=== PATIENT | male | born 1945 | race Caucasian/White ===

== ENCOUNTER 2017-04-15 12:14 | Inpatient (IN) ==
[2017-04-15] MEDS ORDERED: SALINE FLUSH 10ml SYRINGE IVF PRN (13:02)
[2017-04-15] MEDS ORDERED: OLANZapine INJ 10 MG VIAL IM ONE (13:32)
--- NOTE | 2017-04-15 17:20 | Emergency Department Report ---
Psych HPI - General Chief Complaint: Psychiatric Symptoms Stated Complaint: psych eval Time Seen by Provider: 04/15/17 12:30 Source: patient, police Mode of arrival: other (with [employer]) Limitations: altered mental status - History of Present Illness HPI Narrative: Pt presents with [employer] after they found him in a field with no shoes on. PD reports pt was hyperverbal and talking about God and Satan and unable to stay on topic conversationally. Pt reports he sometimes lives in a car and knows how to fly a plane. Pt is difficult to assess 2/2 flight of ideas. Pt denies any desire to hurt himself or others however is clearly unable to care for himself MD complaint: altered mental status, other (psychotic) Onset (ago): unknown Duration: constant Treatments prior to arrival: none - Related Data Home Medications Medication Instructions Recorded Confirmed No known Home medications [No home 04/15/17 04/15/17 meds] Allergies Allergy/AdvReac Type Severity Reaction Status Date / Time No Known Allergies Allergy Verified 04/15/17 12:28 Review of Systems Limitations: ROS unobtainable due to patient's medical condition PFSH Patient Stated Medical History Other Musculoskeletal Yes: fx - Social History Smoking status: Former smoker Physical Exam - Limitations Limitations: altered mental status, other (psychosis) - General General appearance: alert, anxious, in distress - Normal Exams: Head:: Normocephalic without trauma Eyes:: Pupils are PERRLA w/ EOMI Neck:: Full range of motion, without adenopathy Chest/Respirations:: Clear all gomez, with good airflow, and symmetry bilaterally Cardiovascular:: Regular rate and rhythm, without murmur or gallop, Pulses 2+ all extremities, capillary refill Abdomen:: Bowel sounds positive, soft, non-tender, non-distended Musculoskeletal:: No tenderness, or deformity noted, good range of motion, all extremities Integumentary:: No rashes Neurological:: Patient is alert - Expanded Psychiatric Exam Expanded psych exam: Present: pressured speech, responds to int stimuli, delusional, restlessness, flight of ideas, loose associations, refuses to answer Course Vital Signs Temperature 98.6 F 04/15/17 12:29 Pulse Rate 91 04/15/17 12:29 Respiratory Rate 16 04/15/17 12:29 Blood Pressure 144/65 H 04/15/17 12:29 Pulse Oximetry 95 04/15/17 12:29 Temperature 98.6 F 04/15/17 12:29 Pulse Rate 109 H 04/15/17 18:36 Respiratory Rate 22 04/15/17 18:36 Blood Pressure 136/63 04/15/17 18:36 Pulse Oximetry 95 04/15/17 18:36 Psych - MDM Narrative Medical decision making narrative: Pt given Zyprexa earlier in his stay and has been restful and quiet since. After all diagnostics resulted [facility] notified for admit at 1720. [facility] returned call at 1816 and are willing to accept pt if ER obtains a court hold. PD notified by nursing and court hold obtained. Pt to transfer for continued care - Differential Diagnosis Likely: acute psychosis, chronic schizophrenia, bipolar disorder, drug-induced psychotic disorder, acute anxiety - Lab Data Attestation: I reviewed the patient's lab results. Result diagrams: 04/15/17 14:12 04/15/17 14:12 Lab Results 04/15/17 04/15/17 04/15/17 Range/Units 14:12 14:12 14:12 WBC 8.3 (4.5-11.0) T/MM3 RBC 3.86 L (4.50-5.90) M/MM3 Hgb 11.0 L (13.5-17.5) GM/DL Hct 33.3 L (41-53) % MCV 86.3 (80-100) UM3 MCH 28.5 (26-34) UUG MCHC 33.0 (31-37) GM/DL RDW Std Deviation 45.9 (36.9-50.2) FL Plt Count 247 (130-400) T/MM3 MPV 10.2 (9.4-12.4) UM3 Immature Gran % (Auto) 0.2 (0.0-0.5) % Neut % (Auto) 77.3 H (33-66) % Lymph % (Auto) 16.2 L (23-45) % [place] % (Auto) 6.0 (0-9.0) % Eos % (Auto) 0.1 (0-4) % Baso % (Auto) 0.2 (0-2) % Neut # (Auto) 6.4 (1.8-7.7) T/MM3 Lymph # (Auto) 1.4 (1-4.8) T/MM3 [place] # (Auto) 0.5 (0-0.8) T/MM3 Eos # (Auto) 0.0 (0-0.5) T/MM3 Baso # (Auto) 0.0 (0-0.2) T/MM3 Abs Immat Gran (auto) 0.02 (0.00-0.03) T/MM3 Turbidity < 20 (0-20) Sodium 138 (134-144) MEQ/L Potassium 3.8 (3.6-5) MEQ/L Chloride 103 (98-107) MEQ/L Carbon Dioxide 24 (22-30) MEQ/L Anion Gap 11 (5-15) MEQ/L BUN 13.0 (9-20) MG/DL Creatinine 0.8 (0.8-1.5) MG/DL GFR Calculation 95 BUN/Creatinine Ratio 16 (6-26) RATIO Glucose 129 H (75-110) MG/DL Calculated Osmolality 268 (261-280) MOSM/KG Calcium 9.2 (8.4-10.2) MG/DL Total Bilirubin 0.50 (0.20-1.30) MG/DL Icterus Index < 2 (0-7) AST 20 (17-59) U/L ALT 34 (21-72) U/L Alkaline Phosphatase 68 (38-126) U/L Total Protein 7.2 (6.3-8.2) G/DL Albumin 3.8 (3.5-5.0) G/DL Globulin 3.4 (2.4-3.6) G/DL Albumin/Globulin Ratio 1.1 (1.1-2.2) RATIO TSH 2.07 (0.47-4.68) MIU/L Specimen Hemolysis < 15 (0-25) Ur Collection Type Urine, clean catch Urine Color Yellow (YELLOW) Urine Clarity Clear Urine pH 6.0 (5.0-8.0) Ur Specific [place] 1.025 (1.015-1.025) Urine Protein 1+ A (NEGATIVE) Urine Glucose (UA) Negative (NEGATIVE) Urine Ketones Trace A (NEGATIVE) Urine Occult Blood Negative (NEGATIVE) Urine Nitrate Negative (NEGATIVE) Urine Bilirubin 1+ A (NEGATIVE) Urine Urobilinogen 4.0 A (NORMAL) EU/DL Ur Leukocyte Esterase Negative (NEGATIVE) Urine RBC 0-1 (0-3) /HPF Urine WBC 0-1 (0-5) /HPF Ur Squamous Epith Cells 0-5 Urine Bacteria Trace H (NEGATIVE) Ur Culture Indicated? Cult not indicated Salicylates < 1.0 L (2-20) MG/DL Urine Opiates Screen ng/mL Ur Oxycodone Screen ng/mL Urine Methadone Screen ng/mL Ur Propoxyphene Screen ng/mL Acetaminophen < 10 L (10-30) UG/ML Ur Barbiturates Screen ng/mL U Tricyclic Antidepress ng/mL Ur Phencyclidine Scrn ng/mL Ur Amphetamines Screen ng/mL U Methamphetamines Scrn ng/mL U Benzodiazepines Scrn ng/mL Urine Cocaine Screen ng/mL U Cannabinoids Screen ng/mL 04/15/17 Range/Units 14:12 WBC (4.5-11.0) T/MM3 RBC (4.50-5.90) M/MM3 Hgb (13.5-17.5) GM/DL Hct (41-53) % MCV (80-100) UM3 MCH (26-34) UUG MCHC (31-37) GM/DL RDW Std Deviation (36.9-50.2) FL Plt Count (130-400) T/MM3 MPV (9.4-12.4) UM3 Immature Gran % (Auto) (0.0-0.5) % Neut % (Auto) (33-66) % Lymph % (Auto) (23-45) % [place] % (Auto) (0-9.0) % Eos % (Auto) (0-4) % Baso % (Auto) (0-2) % Neut # (Auto) (1.8-7.7) T/MM3 Lymph # (Auto) (1-4.8) T/MM3 [place] # (Auto) (0-0.8) T/MM3 Eos # (Auto) (0-0.5) T/MM3 Baso # (Auto) (0-0.2) T/MM3 Abs Immat Gran (auto) (0.00-0.03) T/MM3 Turbidity (0-20) Sodium (134-144) MEQ/L Potassium (3.6-5) MEQ/L Chloride (98-107) MEQ/L Carbon Dioxide (22-30) MEQ/L Anion Gap (5-15) MEQ/L BUN (9-20) MG/DL Creatinine (0.8-1.5) MG/DL GFR Calculation BUN/Creatinine Ratio (6-26) RATIO Glucose (75-110) MG/DL Calculated Osmolality (261-280) MOSM/KG Calcium (8.4-10.2) MG/DL Total Bilirubin (0.20-1.30) MG/DL Icterus Index (0-7) AST (17-59) U/L ALT (21-72) U/L Alkaline Phosphatase (38-126) U/L Total Protein (6.3-8.2) G/DL Albumin (3.5-5.0) G/DL Globulin (2.4-3.6) G/DL Albumin/Globulin Ratio (1.1-2.2) RATIO TSH (0.47-4.68) MIU/L Specimen Hemolysis (0-25) Ur Collection Type Urine Color (YELLOW) Urine Clarity Urine pH (5.0-8.0) Ur Specific [place] (1.015-1.025) Urine Protein (NEGATIVE) Urine Glucose (UA) (NEGATIVE) Urine Ketones (NEGATIVE) Urine Occult Blood (NEGATIVE) Urine Nitrate (NEGATIVE) Urine Bilirubin (NEGATIVE) Urine Urobilinogen (NORMAL) EU/DL Ur Leukocyte Esterase (NEGATIVE) Urine RBC (0-3) /HPF Urine WBC (0-5) /HPF Ur Squamous Epith Cells Urine Bacteria (NEGATIVE) Ur Culture Indicated? Salicylates (2-20) MG/DL Urine Opiates Screen Negative ng/mL Ur Oxycodone Screen Negative ng/mL Urine Methadone Screen Negative ng/mL Ur Propoxyphene Screen Negative ng/mL Acetaminophen (10-30) UG/ML Ur Barbiturates Screen Negative ng/mL U Tricyclic Antidepress Negative ng/mL Ur Phencyclidine Scrn Negative ng/mL Ur Amphetamines Screen Negative ng/mL U Methamphetamines Scrn Negative ng/mL U Benzodiazepines Scrn Negative ng/mL Urine Cocaine Screen Negative ng/mL U Cannabinoids Screen Negative ng/mL Disposition Clinical Impression: Acute psychosis Disposition: 63 To [facility] Condition: Improved Prescriptions: No Action No known Home medications [No home meds] [facility] Time of Disposition: 18:49 - Seen By: midlevel
[2017-04-15] MEDS ORDERED: DiphenhydrAMINE 50 MG/ML INJECTION IM PRN (20:24)
[2017-04-15] MEDS ORDERED: ASENAPINE 5 MG SUBLINGUAL TABLET SL SCH (21:00)
[2017-04-16] MEDS: LORazepam INTENSOL 1mg/0.5ml ORAL LIQUID SL PRN ×2 (00:30→07:52)
[2017-04-16 04:18] VITALS: BMI 22.9
--- NOTE | 2017-04-16 07:24 | History & Physical Report ---
History of Present Illness Date: 04/16/17 Chief complaint: brought in by police HPI: Pt is a 71 yo male who the police found in a field with no shoes on. Per ER report: "PD reports pt was hyperverbal and talking about God and Satan and unable to stay on topic conversationally. Pt reports he sometimes lives in a car and knows how to fly a plane." At this point, no one has been able to locate his car or find out where he lives. He was found with a wallet and drivers license and car keys. Pt tells me he is "from around [place]," but doesn't elaborate. Says he is "after the outlaws." Requests bleach to "make a bomb" and then later states he wants it to "clean his dentures." C/o not being able to stay asleep at night. He has no complaints at the present time other than feeling "tired and sleepy." He reports he is eating well. It is difficult to elicit history given patient's flight of ideas. Review of Systems All systems PM: 10-point ROS was reviewed, no additional remarkable complaints except - Constitutional Constitutional: Present: fatigue Comments: insomnia [facility] Medical History Acute psychosis (Acute Medical) otherwise unknown - pt with no known PCP and reports no medical history other than surgery on L4-L5 Surgical History: unknown other than pt reports L4-L5 back surgery, states he broke his L tibia in the past but didn't require surgery Family History: unknown. Unable to elicit from pt. - Social History Smoking status: Former smoker Substance use type: unknown Alcohol intake frequency: other (unknown) Housing: homeless Social history: unknown Medications Home Medications Medication Instructions Recorded Confirmed Type No known Home medications [No home 04/15/17 04/15/17 History meds] Allergies Allergy/AdvReac Type Severity Reaction Status Date / Time No Known Allergies Allergy Verified 04/15/17 12:28 Exam Vital Signs: Temperature 98.8 F 04/15/17 19:00 Pulse Rate 93 04/15/17 19:00 Respiratory Rate 16 04/15/17 19:00 Blood Pressure 137/70 04/15/17 19:00 Pulse Oximetry 96 04/15/17 19:00 Height/Weight/BMI: Height 1.7 m Weight 66.5 kg Body Mass Index 22.9 - Constitutional Present: no acute distress, well nourished, well developed - Routine HEENT Exam Eye: Present: EOMI ENT: Present: external ear normal - Routine Neck Exam Present: supple. Absent: swelling - Routine Respiratory Exam Present: CTA bilaterally. Absent: wheezes - Routine Cardiovascular Exam Present: RRR, S1, S2. Absent: murmur - Routine Abdominal Exam Present: soft. Absent: tenderness - Routine Extremities Exam Present: edema (some brawny pigmentation, scaly skin and 1+ edema (pt states this is chronic for him)), no edema (RLE), normal capillary refill - Routine Skin Exam Present: dry, warm - Routine Neurological Exam Present: alert, CN II-XII intact, moving all extremities, normal tone, vision grossly intact, hearing grossly intact, normal speech. Absent: pronator drift, abnormal gait, facial asymmetry, tremors remembers his Bday and topics we discussed earlier in the conversation. Knows he is in a hospital. - Routine Psychiatric Exam Present: normal affect, cooperative Results - Labs CBC & Chem 7: 04/15/17 14:12 04/15/17 14:12 Labs: Laboratory Tests 04/15/17 04/15/17 14:12 14:12 Salicylates < 1.0 L Urine Opiates Screen Negative Ur Oxycodone Screen Negative Urine Methadone Screen Negative Ur Propoxyphene Screen Negative Acetaminophen < 10 L Ur Barbiturates Screen Negative U Tricyclic Antidepress Negative Ur Phencyclidine Scrn Negative Ur Amphetamines Screen Negative U Methamphetamines Scrn Negative U Benzodiazepines Scrn Negative Urine Cocaine Screen Negative U Cannabinoids Screen Negative Laboratory Tests 04/15/17 04/15/17 04/15/17 14:12 14:12 14:12 AST 20 ALT 34 Alkaline Phosphatase 68 Vitamin B12 260 Folate 11.6 TSH 2.15 Laboratory Tests 04/15/17 14:12 Ur Collection Type Urine, clean catch Urine Color Yellow Urine Clarity Clear Urine pH 6.0 Ur Specific [place] 1.025 Urine Protein 1+ A Urine Glucose (UA) Negative Urine Ketones Trace A Urine Occult Blood Negative Urine Nitrate Negative Urine Bilirubin 1+ A Urine Urobilinogen 4.0 A Ur Leukocyte Esterase Negative Urine RBC 0-1 Urine WBC 0-1 Ur Squamous Epith Cells 0-5 Urine Bacteria Trace H Assessment and Plan (1) Acute psychosis Current visit: Yes Status: Acute Assessment and Plan: Assessment acute psychosis Plan Agree with admission to [facility] for psychiatric treatment under the care of Dr. Corcoran. Based on labs and physical exam, there are no physical problems other than maybe some osteoarthritis. Medication management per Dr. Corcoran. VSS's and labs are normal. Will continue to follow patient medically throughout his stay as needed. Appreciate the consult. Elida Clements MD I have independently evaluated and examined this patient. I reviewed the chart, the patient's history, and the PATIENT ACCESS DIRECTOR/PA's documented findings as above. We discussed and formulated the assessment and plan as above with additions as below: Mr. Cole is a 71 yo male found by police in a field with no shoes. He changes topics often and rarely answers a question directly. He does admit to having recently had a cough and runny nose. He says this is improving. He denies soa. At one point he said he had lost 30 pounds, but he would not say any more about that. He was admitted under a court hold for acute psychosis. NAD nc/at, perrl, eomi ctab rrr s/nt/nd no edema cn ii-xii intact; coles; face symmetrical Agree with admission to [facility]. Could offer cough drops if cough continues. Has mild anemia that could be w/u outpatient. Hospital Course Summary Disclaimer: The visit summary below is not to be considered part of the above Progress Note. Hospital Course: Assessment acute psychosis 04/16/17 -hospitalist consult Agree with admission to [facility] for psychiatric treatment under the care of Dr. Corcoran. Based on labs and physical exam, there are no physical problems other than maybe some osteoarthritis. Medication management per Dr. Corcoran. VS's and labs are normal. Will continue to follow patient medically throughout his stay as needed. Appreciate the consult.
[2017-04-16] MEDS ORDERED: DIVALPROEX 250 MG TABLET PO ONE (14:00)
[2017-04-16] MEDS: NICOTINE 14 MG PATCH TD SCH (14:34)
[2017-04-16] MEDS: NICOTINE PATCH REMOVAL TD SCH (16:45)
[2017-04-16] MEDS: LORazepam 0.5 MG TABLET PO PRN (20:46)
--- NOTE | 2017-04-16 20:46 | 24 Hour Neuropsychiatic Eval ---
Date of Admission: 04/15/17 16:50 Chief complaint: Psychosis History of Present Illness: Patient is a 71-year-old , male who was brought to the [facility] ED on 04/15 after being found in a field, with only a pill bottle with him. Patient was either not able or not willing to tell police or staff anything about himself after arrival other than his name. He did have a pill bottle with him (unsure what medication) to a pharmacy in [place] - that pill bottle is no longer able to be located. It did not appear that he had overdosed per ED workup and he was deemed to be medically stable. Patient is cooperative but tense throughout interview with me. He is hyperverbal , with pressured speech and impulsive, with flight of ideas and loose associations. He is oriented to everything but situation. He is grandiose throughout interview, talking about [place], chauffering multimillionaires , etc. He says that this hospital is "saving his life" but can't tell me where he is from, why he is in [place], etc. He has reported that he has been homeless for some time and spent time primarily in the [place]. He is guarded about past psych history but does say he was in a mental institution ~30 years ago in [place]. He mentions thorazine and says "they tried to say he was bipolar" but by the time he was discharged, they wanted to hire him to medical staff because he could control the other patients better than they could. He denies any history of suicide attempts though he is obviously quite limited in his reliability as a historian. Patient often changes the subject when asked questions to which he does not know the answer. He is often sarcastic and makes comments about harming/killing others, though he denies HI toward anyone here in the hospital. He will not tell me who he would like to harm outside of the hospital though there are people. He states that he often has difficulty sleeping and has gone for several days without much sleep in the past. He denies any change in appetite (but would like to eat more) and denies any history of AVH. He denies any paranoia or thought broadcasting. Kath: Grandiose, Increased activity goal-directed/high risk, Decreased judgment , Distractible, Irritability, Need less sleep, Elevated mood, Speedy talking, Speedy thoughts Psychosis: Disorganized speech, Disorganized behavior Dementia: Memory Impairment [facility] Medical History Acute psychosis (Acute Medical) Medical History Updates: Patient denies any known medical conditions, history of seizures or head injury. Surgical History: unknown other than pt reports L4-L5 back surgery, states he broke his L tibia in the past but didn't require surgery Family History: Patient denies any family history of mental illness. 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 Absent: auditory hallucinations, depression, homicidal ideation, hopelessness, panic attacks, paranoia, suicidal ideation, visual hallucinations Mental Status Exam Vitals: Last Vital Signs Temp 99.1 F 04/16/17 19:42 Pulse 83 04/16/17 19:42 Resp 16 04/16/17 19:42 BP 128/61 04/16/17 19:42 Pulse Ox 98 04/16/17 19:42 Height: 1.7 m Weight: 66.5 kg - Mental Status Exam Muscle Strength/Tone: Normal Dressing: Casual Grooming: Disheveled Attitude: Cooperative, Tense Motor Activity: Fidgety Eye Contact: Good Speech: Rapid, Pressured Volume: Normal Rhythm: Appropriate Rhythm Sensory: Alert Orientation: Disoriented to situation, Oriented to person, Oriented to place, Oriented to time Mood: Euphoric Affect: Manic Rate of Thoughts: Pressured Thought Organization: Disorganized, Circumstantial Associations: Flight of Ideas, Loose-associations, Illogical Abstract Reasoning: Impaired, concrete Thought Content: Grandeur Perception/Psychotic: Perception Normal Language: Other (Some word-finding difficulties) Fund of Knowledge: Other (Decreased) Memory: Poor-recent Suicidal Ideation: Denies Homicidal Ideation: Other (Makes frequent statements regarding HI towards unnamed people) Insight: Impaired Judgement: Impaired Impulse Control: Poor - Laboratory Result Diagrams: 04/15/17 14:12 04/15/17 14:12 Assessment and Plan (1) Severe manic bipolar 1 disorder with psychotic behavior Current visit: Yes Status: Acute (2) Neurocognitive disorder Current visit: Yes Status: Acute Admit to [facility] and maintain safety and elopement precautions. Will order/review: CBC, CMP, TSH, UA, UDS, B12 and folate, CT of head +/- contrast 24-hour emergency court hold filed from ED; will plan to mile [facility] Got Zyprexa 20mg IM in ED - for the time being will do only PRN Ativan Benadryl Discussed treatment with patient who agreed to starting Depakote - will do a 250mg PO 1x now and then 1000mg ER tonight Monitor mood, behavior and response to treatment Attempt to gain more information about patient to assist with treatment planning
[2017-04-17] MEDS ORDERED: INFLUENZA VAC High Dose 2017-18 (Fluzone HD*) (>=65yo) 0.5ml IM ONE (09:00)
[2017-04-17] MEDS ORDERED: PNEUMOCOCCAL 13 VACCINE 0.5ml INJECTION IM ONE (09:00)
[2017-04-17] MEDS: NICOTINE 14 MG PATCH TD SCH (11:37)
[2017-04-17] MEDS: NICOTINE PATCH REMOVAL TD SCH (11:37)
[2017-04-17] MEDS: LORazepam 0.5 MG TABLET PO PRN ×2 (13:55→20:27)
[2017-04-17] MEDS ORDERED: OLANZapine 2.5 MG TABLET PO ONE (14:45)
--- NOTE | 2017-04-17 15:51 | Neuropsych Progress Note ---
[facility] Subjective Date: 04/17/17 - Sujective/Severity of Illness Medications: Diphenhydramine HCl (Benadryl) 50 mg IM Q4H PRN PRN Reason: Agitation Diphenhydramine HCl (Benadryl) 50 mg PO Q4H PRN PRN Reason: Agitation Last Admin: 04/17/17 13:55 Dose: 50 mg Divalproex Sodium (Depakote Er) 1,000 mg PO HS JAIME Last Admin: 04/16/17 20:20 Dose: 1,000 mg Lorazepam (Ativan) 0.5 mg PO Q6H PRN PRN Reason: Extreme agitation Last Admin: 04/17/17 13:55 Dose: 0.5 mg Lorazepam (Ativan Inj) 0.5 mg IM Q6H PRN PRN Reason: Extreme agitation Lorazepam (Ativan Intensol) 0.5 mg SL Q6H PRN Last Admin: 04/16/17 07:52 Dose: 0.5 mg Nicotine (Nicoderm) 14 mg TD DAILY [facility] Last Admin: 04/17/17 11:37 Dose: Not Given Nicotine (Nicotine Patch Removal) 1 removal TD DAILY [facility] Last Admin: 04/17/17 11:37 Dose: Not Given Sodium Chloride (Iv Flush) 10 - 80 ml IVF PRN PRN PRN Reason: Flushing Subjective: Patient seen and chart reviewed. Goals of treatment discussed and acknowledged by patient. He had ~4 hours of sleep interrupted overnight. He runs down the hallway occasionally. He has been making threatening statements to various people on the unit. During interview he is cooperative with me but still tense and makes frequent comments about harming others. He continues to be grandiose with flight of ideas and loose associations. VSS. Multiple PRNs given in past 24 hours. Will restart Zyprexa tonight in addition to Depakote. Patient is eating well. Has not been combative or outright aggressive. Start Time: 13:00 Stop Time: 13:20 Mental Status Exam Vitals: Last Vital Signs Temp 99.1 F 04/17/17 08:00 Pulse 78 04/17/17 08:00 Resp 18 04/17/17 08:00 BP 139/65 04/17/17 08:00 Pulse Ox 100 04/17/17 08:00 Height: 1.7 m Weight: 66.5 kg - Mental Status Exam Muscle Strength/Tone: Normal Dressing: Casual Grooming: Disheveled Attitude: Cooperative, Tense Motor Activity: Fidgety Eye Contact: Good Speech: Rapid, Pressured Volume: Normal Rhythm: Appropriate Rhythm Orientation: Disoriented to time, Disoriented to place, Disoriented to situation , Oriented to person Mood: Euphoric Rate of Thoughts: Pressured Thought Organization: Disorganized, Circumstantial Associations: Flight of Ideas, Loose-associations, Illogical Abstract Reasoning: Impaired, concrete Thought Content: Grandeur Perception/Psychotic: Perception Normal Language: Other (Some word-finding difficulties) Fund of Knowledge: Other (Decreased) Memory: Poor-recent Suicidal Ideation: Denies Homicidal Ideation: Other (Makes frequent statements regarding HI towards unnamed people) Insight: Impaired Judgement: Impaired Impulse Control: Poor - Laboratory Result Diagrams: 04/15/17 14:12 04/15/17 14:12 Assessment and Plan (1) Severe manic bipolar 1 disorder with psychotic behavior Current visit: Yes Status: Acute (2) Neurocognitive disorder Current visit: Yes Status: Acute Hospital Course Summary Disclaimer: The visit summary below is not to be considered part of the above Progress Note. Hospital Course: Assessment acute psychosis 04/16/17 -hospitalist consult Agree with admission to [facility] for psychiatric treatment under the care of Dr. Corcoran. Based on labs and physical exam, there are no physical problems other than maybe some osteoarthritis. Medication management per Dr. Corcoran. VS's and labs are normal. Will continue to follow patient medically throughout his stay as needed. Appreciate the consult. 04/17/17 Psych: Continue Depakote ER 1000mg PO q HS. Start Zyprexa 2.5mg PO x1 now and another 2.5mg at HS. MHP filed; court scheduled for tomorrow. Will request state screen due to frequent threats to others.
[2017-04-17] MEDS: ACETAMINOPHEN 325 MG TABLET PO PRN (20:26)
[2017-04-17] MEDS ORDERED: OLANZapine 2.5 MG TABLET PO SCH (21:00)
[2017-04-18] MEDS: NICOTINE 14 MG PATCH TD SCH (08:03)
[2017-04-18] MEDS: NICOTINE PATCH REMOVAL TD SCH (08:03)
[2017-04-18] MEDS ORDERED: MENTHOL COUGH DROPS (RICOLA) MM PRN (09:03)
--- NOTE | 2017-04-18 14:42 | Neuropsych Progress Note ---
[facility] Subjective Date: 04/18/17 - Sujective/Severity of Illness Medications: Acetaminophen (Tylenol) 325 - 650 mg PO Q5H PRN PRN Reason: Discomfort Last Admin: 04/17/17 20:26 Dose: 650 mg Diphenhydramine HCl (Benadryl) 50 mg IM Q4H PRN PRN Reason: Agitation Diphenhydramine HCl (Benadryl) 50 mg PO Q4H PRN PRN Reason: Agitation Last Admin: 04/18/17 03:15 Dose: 50 mg Divalproex Sodium (Depakote Er) 1,000 mg PO HS [facility] Last Admin: 04/17/17 20:27 Dose: 1,000 mg Lorazepam (Ativan) 0.5 mg PO Q6H PRN PRN Reason: Extreme agitation Last Admin: 04/17/17 20:27 Dose: 0.5 mg Lorazepam (Ativan Inj) 0.5 mg IM Q6H PRN PRN Reason: Extreme agitation Lorazepam (Ativan Intensol) 0.5 mg SL Q6H PRN Last Admin: 04/16/17 07:52 Dose: 0.5 mg Menthol (Ricola Sf) 1 lozenge MM PRN PRN PRN Reason: Cough Last Admin: 04/18/17 09:37 Dose: 1 lozenge Nicotine (Nicoderm) 14 mg TD DAILY [facility] Last Admin: 04/18/17 08:03 Dose: Not Given Nicotine (Nicotine Patch Removal) 1 removal TD DAILY [facility] Last Admin: 04/18/17 08:03 Dose: Not Given Olanzapine (Zyprexa) 2.5 mg PO HS [facility] Last Admin: 04/17/17 20:27 Dose: 2.5 mg Sodium Chloride (Iv Flush) 10 - 80 ml IVF PRN PRN PRN Reason: Flushing Subjective: Pt seen and chart examined. Nursing reports pt remains irritable and impulsive but is redirectable. On face to face the pt is irritable and angry. He is grandiose and confused and asks to leave. He is tangential with pressured speech and is guarded. He denies any S/I. Start Time: 11:00 Stop Time: 11:15 Mental Status Exam Vitals: Last Vital Signs Temp 98.0 F 04/18/17 07:22 Pulse 81 04/18/17 07:22 Resp 20 11/17/17 07:22 BP 130/69 04/18/17 07:22 Pulse Ox 98 04/18/17 07:22 Height: 1.7 m Weight: 66.5 kg - Mental Status Exam Muscle Strength/Tone: Normal Dressing: Casual Grooming: Disheveled Attitude: Guarded, Tense Motor Activity: Fidgety Eye Contact: Good Speech: Rapid, Pressured Volume: Normal Rhythm: Appropriate Rhythm Orientation: Disoriented to time, Disoriented to place, Disoriented to situation , Oriented to person Mood: Euphoric Rate of Thoughts: Pressured Thought Organization: Disorganized, Circumstantial Associations: Flight of Ideas, Loose-associations, Illogical Abstract Reasoning: Impaired, concrete Thought Content: Grandeur Perception/Psychotic: Perception Normal Language: Other (Some word-finding difficulties) Fund of Knowledge: Other (Decreased) Memory: Poor-recent Suicidal Ideation: Denies Homicidal Ideation: Other (Makes frequent statements regarding HI towards unnamed people) Insight: Impaired Judgement: Impaired Impulse Control: Poor - Laboratory Result Diagrams: 04/17/17 17:21 04/17/17 17:21 Laboratory Results - last 24 hr 04/17/17 04/17/17 04/17/17 17:21 17:21 17:21 WBC 5.6 RBC 4.01 L Hgb 11.2 L Hct 34.8 L MCV 86.8 MCH 27.9 MCHC 32.2 RDW Std Deviation 47.5 Plt Count 262 MPV 10.6 Immature Gran % (Auto) 0.0 Neut % (Auto) 56.6 Lymph % (Auto) 33.5 [place] % (Auto) 7.7 Eos % (Auto) 2.0 Baso % (Auto) 0.2 Neut # (Auto) 3.2 Lymph # (Auto) 1.9 [place] # (Auto) 0.4 Eos # (Auto) 0.1 Baso # (Auto) 0.0 Abs Immat Gran (auto) 0.00 Turbidity < 20 Sodium 143 Potassium 4.6 D Chloride 102 Carbon Dioxide 29 Anion Gap 12 BUN 13.0 Creatinine 0.9 GFR Calculation 83 BUN/Creatinine Ratio 14 Glucose 98 Hemoglobin A1c Calculated Osmolality 275 Calcium 9.6 Total Bilirubin 0.20 Icterus Index < 2 AST 15 L ALT 34 Alkaline Phosphatase 65 Total Protein 7.2 Albumin 3.7 Globulin 3.5 Albumin/Globulin Ratio 1.1 Triglycerides Cholesterol LDL Cholesterol, Calc VLDL Cholesterol HDL Cholesterol Cholesterol/HDL Ratio Specimen Hemolysis < 15 Ur Collection Type Urine Color Urine Clarity Urine pH Ur Specific [place] Urine Protein Urine Glucose (UA) Urine Ketones Urine Occult Blood Urine Nitrate Urine Bilirubin Urine Urobilinogen Ur Leukocyte Esterase Urinalysis Comment Urine Opiates Screen Ur Oxycodone Screen Urine Methadone Screen Ur Propoxyphene Screen Ur Barbiturates Screen U Tricyclic Antidepress Ur Phencyclidine Scrn Ur Amphetamines Screen U Methamphetamines Scrn U Benzodiazepines Scrn Urine Cocaine Screen U Cannabinoids Screen HIV 1&2 Antibody Rapid Negative 04/17/17 04/17/17 04/18/17 17:35 17:35 07:27 WBC RBC Hgb Hct MCV MCH MCHC RDW Std Deviation Plt Count MPV Immature Gran % (Auto) Neut % (Auto) Lymph % (Auto) [place] % (Auto) Eos % (Auto) Baso % (Auto) Neut # (Auto) Lymph # (Auto) [place] # (Auto) Eos # (Auto) Baso # (Auto) Abs Immat Gran (auto) Turbidity Sodium Potassium Chloride Carbon Dioxide Anion Gap BUN Creatinine GFR Calculation BUN/Creatinine Ratio Glucose Hemoglobin A1c 5.8 L Calculated Osmolality Calcium Total Bilirubin Icterus Index AST ALT Alkaline Phosphatase Total Protein Albumin Globulin Albumin/Globulin Ratio Triglycerides 104 Cholesterol 107 L LDL Cholesterol, Calc 51.2 L VLDL Cholesterol 20.8 HDL Cholesterol 35 L Cholesterol/HDL Ratio 3.1 Specimen Hemolysis Ur Collection Type Urine, clean catch Urine Color Yellow Urine Clarity Clear Urine pH 7.0 Ur Specific [place] 1.010 L Urine Protein Negative Urine Glucose (UA) Negative Urine Ketones Negative Urine Occult Blood Negative Urine Nitrate Negative Urine Bilirubin Negative Urine Urobilinogen 0.2 Ur Leukocyte Esterase Negative Urinalysis Comment Microscopic not ind. Urine Opiates Screen Negative Ur Oxycodone Screen Negative Urine Methadone Screen Negative Ur Propoxyphene Screen Negative Ur Barbiturates Screen Negative U Tricyclic Antidepress Negative Ur Phencyclidine Scrn Negative Ur Amphetamines Screen Negative U Methamphetamines Scrn Negative U Benzodiazepines Scrn Negative Urine Cocaine Screen Negative U Cannabinoids Screen Negative HIV 1&2 Antibody Rapid Assessment and Plan (1) Severe manic bipolar 1 disorder with psychotic behavior Current visit: Yes Status: Acute (2) Neurocognitive disorder Current visit: Yes Status: Acute Hospital Course Summary Disclaimer: The visit summary below is not to be considered part of the above Progress Note. Hospital Course: Assessment acute psychosis 04/16/17 -hospitalist consult Agree with admission to [facility] for psychiatric treatment under the care of Dr. Corcoran. Based on labs and physical exam, there are no physical problems other than maybe some osteoarthritis. Medication management per Dr. Corcoran. VS's and labs are normal. Will continue to follow patient medically throughout his stay as needed. Appreciate the consult. 04/17/17 Psych: Continue Depakote ER 1000mg PO q HS. Start Zyprexa 2.5mg PO x1 now and another 2.5mg at HS. MHP filed; court scheduled for tomorrow. Will request state screen due to frequent threats to others. 04/18/17 14:41 Remains manic. Will increase Zyprexa to 5mg. Court today
[2017-04-18] MEDS ORDERED: OLANZapine 5 MG TABLET PO SCH (14:43)
[2017-04-18] MEDS: ACETAMINOPHEN 325 MG TABLET PO PRN (16:11)
[2017-04-18] MEDS: LORazepam 0.5 MG TABLET PO PRN (20:01)
[2017-04-18 20:26] VITALS: BP 142/67; PULSE 88; RESP 20; TEMP 98.9; O2SAT 95
== END 2017-04-19 | DRG 885 ==
LOC: ED 12:14 → GEN 16:50
PROVIDERS: ADMIT Psychiatry & Neurology Psychiatry; ATTEND Psychiatry & Neurology Psychiatry